=== PATIENT | male | born 1955 | race Caucasian/White ===

== ENCOUNTER → 2017-02-14 | Outpatient (CLI) | payer OTHER ==
--- NOTE | 2017-02-14 12:02 | REP ---
MR LUMBAR SPINE WITHOUT CONTRAST: HISTORY: Back pain. Decreased signal intensity on T2-weighted images is present in the lumbar intervertebral discs. The L2-3 through L5-S1 intervertebral discs are decreased in height. These findings are consistent with disc degeneration. A diffuse disc bulge is present at the L1-2 level. There is minimal compression of the thecal sac. There is hypertrophy of the posterior articulating facets. The L1 nerves exit the neural foramina without compression. A diffuse disc bulge is present at the L2-3 level. There is hypertrophy of the ligamentum flava and posterior articulating facets. These findings produce mild central canal stenosis. The L2 nerves exit the neural foramina without compression. A diffuse disc bulge is present at the L3-4 level. There is hypertrophy of the ligamenta flava and posterior articulating facets. These findings produce mild central canal stenosis. The L3 nerves exit the neural foramina without compression. A diffuse disc bulge and small left paracentral and intraforaminal disc protrusion are present at the L4-5 level. There is hypertrophy of the ligamenta flava and posterior articulating facets. These findings produce mild central canal stenosis. There is compression of the left L4 nerve in the neural foramen. The right L4 nerve exits the neural foramen without compression. A diffuse disc bulge is present at the L5-S1 level. This butts the thecal sac and S1 nerves. There is hypertrophy of the posterior articulating facets. There is compression of the left L5 nerve in the neural foramen. The right L5 nerve exits the neural foramen without compression. The conus medullaris is normal in appearance terminating at the level of the T12-L1 intervertebral disc. Increased signal intensity on T2-weighted images is present in the endplates of the L5 and S1 vertebral bodies. This represents degenerative change. IMPRESSION: 1. Diffuse disc bulge at the L1-2 level with minimal thecal sac compression . 2. Mild central canal stenosis at the L2-3 and L3-4 levels secondary to disc bulge, ligamentous and facet hypertrophy. 3. Mild central canal stenosis at the L4-5 level secondary to disc bulge, disc protrusion, ligamentous and facet hypertrophy. There is compression of the left L4 nerve in the neural foramen. 4. Diffuse disc bulge at the L5-S1 level. This abuts the thecal sac and S1 nerves. There is compression of the left L5 nerve in the neural foramen. Signed by Da Rosas MD 02/14/2017 12:05 P
== END ==
LOC: M PLARAD 09:22
PROVIDERS: ATTEND Nurse Practitioner Family
DX: M54.5 Low back pain (principal)